=== PATIENT | male | born 1950 | race Caucasian/White ===

== ENCOUNTER 2025-04-20 13:26 | Outpatient (REF) | payer BC, SELFPAY ==
[2025-04-20 18:28] LABS: Appearance Urine Clear; Glucose Urine UA >=1000 mg/dL (Negative); MANUAL DIFF FLAG NO; PH 5.5 (5.0-9.0); Specific Gravity - Urine >= 1.030 (1.005-1.025); UMIC TRIGGER UACC YES
[2025-04-20 18:32] LABS: Hematocrit 46.2 % (42.0-52.0); Hemoglobin 15.5 g/dl (14.0-18.0); Imm Gran Abs Auto 0.01 X10*3/uL (0.00-0.03); Imm Gran Pct Auto 0.2 % (0.0-0.4); Lymphocytes Absolute Auto 1.6 X10*3/uL (1.2-4.9); Mean Corpuscular HGB Conc 33.5 g/dl (31.0-36.0); Mean Corpuscular Hemoglobin 31.7 pg (27.0-33.0); Mean Corpuscular Volume 94.5 fL (80.0-98.0); NRBC Abs Auto 0.000 X10*3/uL (0.0-0.012); NRBC Pct Auto 0.0 /100WBC (0.0-0.2); Platelet Count 206 X10*3/uL (160-400); Red Blood Count 4.89 X10*6/uL (4.60-5.80); White Blood Count 6.3 X10*3/uL (4.8-10.8)
[2025-04-20 18:44] LABS: Alanine Aminotransferase 20 U/L (0-40); Albumin Level 4.6 g/dL (3.5-5.0); Alkaline Phosphatase 50 U/L (39-117); Anion Gap 13 (12-20); Aspartate Amino Transferase 25 U/L (5-37); Blood Urea Nitrogen 32 mg/dL (9-16); Calcium 9.6 mg/dL (8.4-10.2); Carbon Dioxide 25 mmol/L (22-29); Chloride 109 mmol/L (96-108); Cholesterol 106 mg/dL (<200); Estimated Glomerular Filt Rate 57; HDL Cholesterol 35 mg/dL (>40); Magnesium 2.2 mg/dL (1.6-2.6); Potassium 4.8 mmol/L (3.3-5.1); Sodium 142 mmol/L (135-145); Total Protein 7.2 g/dL (6.5-8.0); Triglycerides 141 mg/dL (<150)
[2025-04-20 19:22] LABS: Folate 9.3 ng/mL (> or = 4.0); Vitamin B12 255 pg/mL (200-900)
[2025-04-21 04:44] LABS: Syphilis Screen Nonreactive (Nonreactive)
[2025-04-21 05:41] LABS: HBS Num1 0.21 mIU/mL (0-7.99); HBsAGNum1 0.41 S/CO (0.00-0.99); HIV Num 1 0.07 S/CO (0.00-0.99); Hepatitis B Surface Antigen Negative (Negative); ~HepC Num1 0.09 S/CO (0.00-0.79); ~Hepatitis B Surface Antibody NONREACTIVE (Nonreactive); ~Hepatitis C Antibody Nonreactive (Nonreactive)
[2025-04-26 08:38] LABS: VITAMIN D (1,25 OH) D3 20 pg/mL; Vit D (1,25-Dihydroxy) Total 20 pg/mL (18-72); Vitamin D (1,25 OH) D2 <8 pg/mL
== END 2025-04-20 13:27 | disposition home or self-care (01) ==
LOC: HO.HKASLDS 13:26
PROVIDERS: PCP Student in an Organized Health Care Education/Training Program; Visit Provider Student in an Organized Health Care Education/Training Program
DX: Z76.89 Persons encountering health services in other specified circumstances (principal); Z13.9 Encounter for screening, unspecified; Z01.89 Encounter for other specified special examinations; Z13.31 Encounter for screening for depression; Z13.220 Encounter for screening for lipoid disorders; Z13.1 Encounter for screening for diabetes mellitus; Z11.4 Encounter for screening for human immunodeficiency virus [HIV]; Z13.6 Encounter for screening for cardiovascular disorders; Z71.9 Counseling, unspecified; L40.9 Psoriasis, unspecified; I50.22 Chronic systolic (congestive) heart failure; H25.9 Unspecified age-related cataract; M17.0 Bilateral primary osteoarthritis of knee; E66.812 Obesity, class 2; Z87.891 Personal history of nicotine dependence; Z68.36 Body mass index [BMI] 36.0-36.9, adult
CPT/HCPCS: 36415; 80053; 80061; 81001; 82607; 82652; 82746; 83036; 83735; 85025; 86706; 86780; 86803; 87340; 87389; 96127

== ENCOUNTER 2025-04-20 13:26 | Outpatient (AMB) | payer BC, SELFPAY ==
--- NOTE | 2025-04-20 13:31 | MHC.PC.OV ---
Vital Signs 04/20/25 13:40 Height 5 ft 3.39 in Weight 207 lb BMI 36.2 BP 98/74 Blood Pressure Location Rt brachial Position Sitting Respiration 16 Pulse 88 Pulse Source Pulse Oximeter Temp 97.8 F Temp Source Oral Pulse Oximetry (%) 95 Oxygen Delivery Method Room Air Intake Visit Reasons: CERTIFIED MA[employer] // Knee Pain Intake Note: establish care Sheriff'S Officer Required: No Accompanied by: Self / Same As Patient Allergies No Known Allergies Allergy (Verified 04/20/25 13:31) Tobacco use date assessed: 04/20/25 Fall risk assessment: No Falls in past year Last assessed Fall Risk: 04/20/25 Dental Screening Dental Screen Date: 04/20/25 Did you have a dental visit in the last 12 months?: Yes Did you have a dental problem in the last 6 months where you did not have access to dental care?: No Was dental information given to patient?: Patient has dentist HPI HPI Comments History of Present Illness Details History of Present Illness The patient is a 74-year-old male presenting with management of existing chronic conditions and obtaining referrals for specialized care. 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 Type 2 Diabetes Mellitus: - The patient has a history of type 2 diabetes mellitus, which he manages with Mounjaro injections, currently at a dose of 12.5 mg. - His last A1c was reported to be just under 6, indicating good control of his diabetes. Psoriasis: - The patient reports psoriasis with scaly plaques present on the forearms, shins, knees, and tailbone. - He is seeking dermatological treatment, including potential injections to manage the condition. Osteoarthritis of bilateral knees: - The patient has osteoarthritis in both knees, requiring knee replacement surgery, but is currently managing with gel injections. Cataracts: - The patient has bilateral cataracts and is seeking ophthalmological evaluation and treatment. Health Maintenance - Low dose CT scan for lung cancer screening due to history of smoking - Abdominal ultrasound for aneurysm screening due to history of smoking - Comprehensive blood work including CBC, lipid profile, A1c, and vitamin levels Review of Systems - Cardiovascular: Reports history of myocardial infarction and congestive heart failure. Denies current chest pain or palpitations. - Endocrine: Reports history of diabetes mellitus, currently well-controlled with medication. - Dermatological: Reports psoriasis with scaly plaques on forearms, shins, knees, and tailbone. - Musculoskeletal: Reports osteoarthritis in both knees, managed with injections. - Ophthalmological: Reports cataracts in both eyes. 10-point ROS reviewed and negative except as noted in HPI Past Medical History - Congestive Heart Failure - Type 2 Diabetes Mellitus - Psoriasis - Osteoarthritis of bilateral knees - Cataracts - History of Myocardial Infarction - History of Smoking Physical Exam - Oral Examination: Tonsils present, no abnormalities noted - Dermatological Examination: Scaly plaques on medial aspect of forearms, bilateral shins, knees, and tailbone - Cardiovascular Examination: Evidence of sternal scar from previous surgery Discussion Notes During the visit, I discussed with the patient the need for referrals to various specialists, including dermatology for psoriasis, ophthalmology for cataracts, and orthopedics for knee osteoarthritis. We also discussed the importance of preventative screenings, such as a low dose CT scan for lung cancer and an abdominal ultrasound due to his smoking history. I emphasized the need for comprehensive blood work to monitor his diabetes and overall health. The patient was advised to follow up with the specialists and return for a review of the results. Plan 1. Unspecified systolic (congestive) heart failure I50.20 HCC 85 - Referral to cardiology for ongoing management and evaluation of heart failure. 2. Type 2 diabetes mellitus with other specified complication E11.69 HCC 18 - Continue Mounjaro injections at 12.5 mg and monitor A1c levels. Referral to endocrinology for diabetes management. 3. Psoriasis, unspecified L40.9 - Referral to dermatology for evaluation and potential treatment with injections. 4. Bilateral primary osteoarthritis of knee M17.0 - Referral to orthopedics for evaluation and management, including potential knee replacement surgery. 5. Unspecified cataract H26.9 - Referral to ophthalmology for evaluation and management of cataracts. 6. Encounter for general adult medical examination with abnormal findings Z00.01 - Order low dose CT scan for lung cancer screening and abdominal ultrasound for aneurysm screening due to history of smoking. - Order comprehensive blood work including CBC, lipid profile, A1c, and vitamin levels. Patient Instructions - Follow up with cardiology, endocrinology, dermatology, ophthalmology, and orthopedics as referred. - Complete all recommended screenings, including low dose CT scan and abdominal ultrasound. - Get comprehensive blood work done as ordered. - Return for a follow-up visit to discuss results and ongoing management. [facility] Family History (Updated 04/20/25 @ 13:32 by Bethany Osullivan MA) Father No problems noted. Mother No problems noted. Social History (Updated 04/20/25 @ 13:32 by Bethany Osullivan MA) Housing: House Alcohol intake: current Alcohol intake frequency: does not drink Patient Tobacco Use Status: Never used Tobacco service: Yes Current occupational status: disabled Cognitive needs: Yes (cane and walker) Hearing needs: Yes (b/l earing aids) Vision needs: Yes (reading) Questionnaire PHQ-9 Over the last 2 weeks, how often have you been bothered by any of the following problems? 1. Little interest or pleasure in doing things: not at all 2. Feeling down, depressed, or hopeless: not at all 3. Trouble falling or staying asleep, or sleeping too much: not at all 4. Feeling tired or having little energy: not at all 5. Poor appetite or overeating: not at all 6. Feeling bad about yourself - or that you are a failure or have let yourself or your family down: not at all 7. Trouble concentrating on things, such as reading the newspaper or watching television: not at all 8. Moving or speaking so slowly that other people could have noticed. Or the opposite - being so fidgety or restless that you have been moving around a lot more than usual: not at all 9. Thoughts that you would be better off or of hurting yourself in some way: not at all Total score: 0 Depression Screening Interpretation: Negative Depression Screening Done: Yes Source: Developed by Drs. Miguel Angel Blanca, Michelle Bettencourt, Sherman Gomez and colleagues, with an educational all from [employer]. Thrive Questionnaire Date Thrive assessed: 04/20/25 I am a: Patient What is your living situation today?: I have a steady place to live Within the past 12 months, did the food you bought not last and you didn't have the money to get more?: I choose not to answer this question Within the past 12 months, did you worry whether your food would run out before you got money to buy more?: I choose not to answer this question Do you have trouble paying for medicines?: I choose not to answer this question Do you have trouble getting transportation to medical appointments?: No Do you have trouble paying your heating and electricity bill?: I choose not to answer this question Do you have trouble taking care of your child, family member or friend?: I choose not to answer this question Are you currently unemployed and looking for a job?: No Are you interested in more education?: No Please select the resources that you would like help with: None Currently or been in a relationship where the following occur: No concerns reported THRIVE Score: 0 AUDIT C Alcohol Use Questionnaire (AUDIT-C) 1. How often do you have a drink containing alcohol?: Never 3. How often do you have six or more drinks on one occasion?: Never Total Score: 0 EILEEN-7 AMB Questionnaire EILEEN-7 Date EILEEN - 7 assessed: 04/20/25 Feeling nervous, anxious, or on edge: 0 = Not at all Not being able to stop or control worryin = Not at all Worrying too much about different things: 0 = Not at all Trouble relaxin = Not at all Being so restless that it is hard to sit still: 0 = Not at all Becoming easily annoyed or irritable: 0 = Not at all Feeling afraid as if something awful might happen: 0 = Not at all Total EILEEN-7 score (0-4 normal; 5-9 mild; 10-14 moderate; 15-21 severe): 0 Source: Developed by Drs. Miguel Angel Blanca, Michelle Bettencourt, Sherman Gomez and colleagues, with an educational all from [employer]. Physical exam (Primary Care) Tobacco/Smoking Status: Tobacco use Status Tobacco use date assessed 04/20/25 04/20/25 13:35 Patient Tobacco Use Status Never used Tobacco 04/20/25 13:35 PHQ-9: PHQ-9 Score PHQ-9: Total score 0 04/20/25 13:35 Depression Screening Interpretation: Negative Thrive Assessment: Date of Thrive Assessment Date Thrive assessed 04/20/25 04/20/25 13:35 Currently or been in a relationship where the following occur: No concerns reported Coding Level of Care Code New Pt Level 3 (49607) Diagnoses Establishing care with new doctor, encounter for Z76.89 Encounter for screening, unspecified Z13.9 Routine lab draw Z01.89 Screening for depression Z13.31 Screening for lipoid disorders Z13.220 Screening for diabetes mellitus Z13.1 Screening for HIV (human immunodeficiency virus) Z11.4 Hypertension screen Z13.6 Counseling, unspecified Z71.9 Psoriasis L40.9 Chronic systolic congestive heart failure I50.22 Heart failure type: systolic Heart failure chronicity: chronic Age-related cataract of both eyes, unspecified age-related cataract type H25.9 Cataract type: age-related Age-related cataract type: unspecified Primary osteoarthritis of both knees M17.0 Osteoarthritis type: primary History of nicotine use Z87.891 Class 2 obesity E66.812 Assessment & Plan Assessment & Plan (1) Establishing care with new doctor, encounter for: Code(s): Z76.89 - Persons encountering health services in other specified circumstances (2) Encounter for screening, unspecified: Code(s): Z13.9 - Encounter for screening, unspecified (3) Routine lab draw: Code(s): Z01.89 - Encounter for other specified special examinations (4) Screening for depression: Code(s): Z13.31 - Encounter for screening for depression (5) Screening for lipoid disorders: Code(s): Z13.220 - Encounter for screening for lipoid disorders (6) Screening for diabetes mellitus: Code(s): Z13.1 - Encounter for screening for diabetes mellitus (7) Screening for HIV (human immunodeficiency virus): Code(s): Z11.4 - Encounter for screening for human immunodeficiency virus [HIV] (8) Hypertension screen: Code(s): Z13.6 - Encounter for screening for cardiovascular disorders (9) Counseling, unspecified: Code(s): Z71.9 - Counseling, unspecified (10) Psoriasis: Code(s): L40.9 - Psoriasis, unspecified (11) Congestive heart failure: Code(s): I50.9 - Heart failure, unspecified Qualifiers: Heart failure type: systolic Heart failure chronicity: chronic Qualified Code(s): I50.22 - Chronic systolic (congestive) heart failure (12) Bilateral cataracts: Code(s): H26.9 - Unspecified cataract Qualifiers: Cataract type: age-related Age-related cataract type: unspecified Qualified Code(s): H25.9 - Unspecified age-related cataract (13) Osteoarthritis of knees, bilateral: Code(s): M17.0 - Bilateral primary osteoarthritis of knee Qualifiers: Osteoarthritis type: primary Qualified Code(s): M17.0 - Bilateral primary osteoarthritis of knee (14) History of nicotine use: Code(s): Z87.891 - Personal history of nicotine dependence (15) Class 2 obesity: Code(s): E66.812 - Obesity, class 2 Plan Orders: Orders Complete Blood Count Auto Diff Today Z13.9 - Encounter for screening, unspecified, Z76.89 - Persons encountering health services in other specified circumstances Comprehensive Met. Panel Today Z13.9 - Encounter for screening, unspecified, Z76.89 - Persons encountering health services in other specified circumstances Hemoglobin A1c Today Z13.9 - Encounter for screening, unspecified, Z76.89 - Persons encountering health services in other specified circumstances HIV Ab/Ag Today Z13.9 - Encounter for screening, unspecified, Z76.89 - Persons encountering health services in other specified circumstances Lipid Panel Today Z13.9 - Encounter for screening, unspecified, Z76.89 - Persons encountering health services in other specified circumstances Magnesium Today Z13.9 - Encounter for screening, unspecified, Z76.89 - Persons encountering health services in other specified circumstances Syphilis Screen Today Z13.9 - Encounter for screening, unspecified, Z76.89 - Persons encountering health services in other specified circumstances Vitamin D 1,25 dihydroxy Today Z13.9 - Encounter for screening, unspecified, Z76.89 - Persons encountering health services in other specified circumstances US abdominal aortic aneurysm Today Z13.9 - Encounter for screening, unspecified, Z87.891 - Personal history of nicotine dependence Hepatitis B Surface Antibody Today Z13.9 - Encounter for screening, unspecified, Z76.89 - Persons encountering health services in other specified circumstances Hepatitis B Surface Antigen Today Z13.9 - Encounter for screening, unspecified, Z76.89 - Persons encountering health services in other specified circumstances Hepatitis C Antibody Today Z13.9 - Encounter for screening, unspecified, Z76.89 - Persons encountering health services in other specified circumstances UA CC w/rflx Micro + Cult Today Z13.9 - Encounter for screening, unspecified, Z76.89 - Persons encountering health services in other specified circumstances Vitamin B12 and Folate Today Z13.9 - Encounter for screening, unspecified, Z76.89 - Persons encountering health services in other specified circumstances CT lung screening Today Z13.9 - Encounter for screening, unspecified, Z87.891 - Personal history of nicotine dependence Referrals Dermatology Referral L40.9 - Psoriasis, unspecified Endocrinology Referral E11.9 - Type 2 diabetes mellitus without complications Cardiology Referral I50.9 - Heart failure, unspecified Ophthalmology Referral H26.9 - Unspecified cataract Orthopedics Referral M17.0 - Bilateral primary osteoarthritis of knee
[2025-04-20 13:40] VITALS: BP 98/74; PULSE 88; RESP 16; TEMP 36.6; O2SAT 95; BMI 36.2
== END 2025-04-20 14:24 | disposition home or self-care (01) ==
LOC: HO.HMCFMS 13:27
PROVIDERS: PCP Student in an Organized Health Care Education/Training Program; Visit Provider Student in an Organized Health Care Education/Training Program
DX: I50.22 Chronic systolic (congestive) heart failure (principal); L40.9 Psoriasis, unspecified; H25.9 Unspecified age-related cataract; M17.0 Bilateral primary osteoarthritis of knee; Z87.891 Personal history of nicotine dependence; E66.812 Obesity, class 2

== ENCOUNTER 2025-05-12 12:48 | Outpatient (AMB) | payer BC, SELFPAY ==
[2025-05-12 12:51] VITALS: BP 121/75; PULSE 81; RESP 16; TEMP 36.3; O2SAT 96; BMI 36.7
--- NOTE | 2025-05-12 12:51 | A.OFFPC_ITS ---
Vital Signs 05/12/25 12:51 Height 5 ft 3.39 in Weight 209 lb 8 oz BMI 36.7 BP 121/75 Blood Pressure Location Rt brachial Position Sitting Respiration 16 Pulse 81 Pulse Source Pulse Oximeter Temp 97.4 F Temp Source Oral Pulse Oximetry (%) 96 Oxygen Delivery Method Room Air Intake Visit Reasons: Cataract surgery 05/26 Both eyes Intake Note: establish care Customer Service Representative Required: No Accompanied by: Self / Same As Patient Allergies No Known Allergies Allergy (Verified 05/12/25 12:51) Tobacco use date assessed: 04/20/25 Fall risk assessment: No Falls in past year Last assessed Fall Risk: 04/20/25 Dental Screening Dental Screen Date: 04/20/25 Did you have a dental visit in the last 12 months?: Yes Did you have a dental problem in the last 6 months where you did not have access to dental care?: No Was dental information given to patient?: Patient has dentist HPI HPI Comments History of Present Illness Details History of Present Illness The patient is a 74-year-old male presenting for follow-up on previous referrals and lab results. Congestive heart failure: - The patient has a history of congestiv e heart failure and is currently managed with medications including spironolactone, Entresto, and metoprolol. - He is scheduled to see a lag screwer for clearance before undergoing cataract surgery. Type 2 diabetes mellitus: - The patient has type 2 diabetes [facility], previously managed with insulin and metformin. - His hemoglobin A1c is currently 6.3%, indicating good control, and he is advised to restart metformin to maintain levels below the diabetic range. Psoriasis: - The patient reports ongoing psoriasis and is considering treatment options including a dermatology referral for potential injections. Osteoarthritis of the knees: - The patient has osteoarthritis of the knees, which is part of his chronic medical history. Cataracts: - The patient is preparing for cataract surgery and requires cardiology clearance due to his cardiac history. Chronic kidney disease stage 2: - The patient has chronic kidney disease stage 2, with a renal function of 57, and is currently on Farxiga for kidney protection. Vitamin B12 deficiency: - The patient has a low vitamin B12 leve l at 255, and supplementation is recommended to prevent deficiency symptoms. Hyperlipidemia: - The patient has hyperlipidemia, with g ood overall cholesterol levels but low HDL at 35. Review of Systems 10-point ROS reviewed and negative excep t as noted in HPI Past Medical History - Congestive heart failure - Type 2 diabetes mellitus - Psoriasis - Osteoarthritis of the knees - Cataracts Health Maintenance - Referral for CT lung screening and abd ominal ultrasound for preventative care. - Vitamin B12 supplementation recommende d to prevent deficiency symptoms. - Referral to a medical scientific liaison and diabeti c educator for dietary management and diabetes education. Physical Exam General: Well-appearing, in no acute distress. Vital signs: Within normal limits. HEENT: Normocephalic, atraumatic. PERRLA, EOMI. Conjunctiva clear, sclera anicteric. Oropharynx clear, mucous membranes moist. TMs intact bilaterally. Neck: Supple, no lymphadenopathy, no thyromegaly, no JVD or carotid bruits. Cardiovascular: RRR, normal S1/S2, no murmurs, rubs, or gallops. Peripheral pulses 2+ and symmetric. No edema. Respiratory: Lungs clear to auscultation bilaterally, no wheezes, rales, or rhonchi. Normal effort. Abdomen: Soft, non-tender, non-distended. Normoactive bowel sounds. No hepatosplenomegaly, no masses. MSK: Full range of motion, no joint swelling or deformity. Normal gait. Skin: Warm, dry, intact. No rashes, lesions, or pallor. Neuro: Alert and oriented x3. Cranial nerves II-XII intact. Strength 5/5 throughout. Sensation intact. Reflexes 2+ symmetric. Normal coordination and gait. Psych: Appropriate mood and affect. Normal judgment and insight. Plan 1. Congestive Heart Failure - Continue current medications including spironolactone, Entresto, and metoprolol. - Obtain cardiology clearance prior to c ataract surgery. 2. Type 2 Diabetes Mellitus - Restart metformin 500 mg twice daily t o maintain hemoglobin A1c below diabetic range. - Referral to a medical scientific liaison and diabeti c educator for dietary management and diabetes education. 3. Psoriasis - Referral to dermatology for evaluation and potential treatment with injections. 4. Osteoarthritis Of The Knees - Continue current management as part of chronic medical history. 5. Cataracts - Schedule cataract surgery pending card iology clearance. 6. Chronic Kidney Disease Stage 2 - Continue Farxiga for kidney protection . 7. Vitamin B12 Deficiency - Supplement with vitamin B12 to prevent deficiency symptoms. 8. Hyperlipidemia - Continue current lipid management; mon itor HDL levels. Discussion Notes During the visit, we discussed the patient's current health status and management plans. I emphasized the importance of maintaining his hemoglobin A1c below the diabetic range and recommended restarting metformin. We also discussed the need for cardiology clearance before cataract surgery due to his cardiac history. I advised on the benefits of vitamin B12 supplementation and referred him to a medical scientific liaison and staff educator for further support. We reviewed the patient's medication regimen and ensured there were no interactions. I provided referrals for dermatology and cardiology consultations. Patient was informed and verbally consented to the use of an ambient scribe for clinic note documentation during this visit. Patient Instructions - Take metformin 500 mg twice daily, onc e in the morning and once at night. - Continue current medications as prescr ibed, including spironolactone, Entresto, and metoprolol. - Schedule and attend cardiology appoint ment for clearance before cataract surgery. - Take a vitamin B12 supplement daily. - Follow up with dermatology for psorias is management. - Attend appointments with the nutrition ist and staff educator for dietary guidance. Total time spent caring for the patient today was 30 minutes. This includes time spent before the visit reviewing the chart, time spent documenting, and time spent reviewing laboratory results, diagnostic imaging, medications, performing a medically necessary evaluation, counseling on diagnoses, care coordination, ordering appropriate tests, ordering appropriate medications, review of tests performed by other providers, reporting test results with the patient. [facility] Medical History (Updated 04/21/25 @ 12:22 by Pawan Low MD) Diabetes mellitus type 2, controlled, without complications Family History Father No problems noted. Mother No problems noted. Social History Housing: House Alcohol intake: current Alcohol intake frequency: does not drink Patient Tobacco Use Status: Never used Tobacco service: Yes Current occupational status: disabled Cognitive needs: Yes (cane and walker) Hearing needs: Yes (b/l earing aids) Vision needs: Yes (reading) Questionnaire PHQ-9 Over the last 2 weeks, how often have you been bothered by any of the following problems? 1. Little interest or pleasure in doing things: not at all 2. Feeling down, depressed, or hopeless: not at all 3. Trouble falling or staying asleep, or sleeping too much: not at all 4. Feeling tired or having little energy: not at all 5. Poor appetite or overeating: not at all 6. Feeling bad about yourself - or that you are a failure or have let yourself or your family down: not at all 7. Trouble concentrating on things, such as reading the newspaper or watching t elevision: not at all 8. Moving or speaking so slowly that other people could have noticed. Or the opposite - being so fidgety or restless that you have been moving around a lot more than usual: not at all 9. Thoughts that you would be better off or of hurting yourself in some way: not at all Total score: 0 Depression Screening Interpretation: Negative Depression Screening Done: Yes Source: Developed by Drs. Miguel Angel Blanca, Michelle Bettencourt, Sherman Gomez and colleagues, with an educational all from [employer]. Thrive Questionnaire Date Thrive assessed: 04/20/25 I am a: Patient What is your living situation today?: I have a steady place to live Within the past 12 months, did the food you bought not last and you didn't have the money to get more?: I choose not to answer this question Within the past 12 months, did you worry whether your food would run out before you got money to buy more?: I choose not to answer this question Do you have trouble paying for medicines?: I choose not to answer this question Do you have trouble getting transportation to medical appointments?: No Do you have trouble paying your heating and electricity bill?: I choose not to answer this question Do you have trouble taking care of your child, family member or friend?: I choose not to answer this question Are you currently unemployed and looking for a job?: No Are you interested in more education?: No Please select the resources that you would like help with: None Currently or been in a relationship where the following occur: No concerns reported THRIVE Score: 0 AUDIT C Alcohol Use Questionnaire (AUDIT-C) 1. How often do you have a drink containing alcohol?: Never 3. How often do you have six or more drinks on one occasion?: Never Total Score: 0 EILEEN-7 AMB Questionnaire EILEEN-7 Date EILEEN - 7 assessed: 04/20/25 Feeling nervous, anxious, or on edge: 0 = Not at all Not being able to stop or control worryin = Not at all Worrying too much about different things: 0 = Not at all Trouble relaxin = Not at all Being so restless that it is hard to sit still: 0 = Not at all Becoming easily annoyed or irritable: 0 = Not at all Feeling afraid as if something awful might happen: 0 = Not at all Total EILEEN-7 score (0-4 normal; 5-9 mild; 10-14 moderate; 15-21 severe): 0 Source: Developed by Drs. Miguel Angel Blanca, Michelle Bettencourt, Sherman Gomez and colleagues, with an educational all from [employer]. Physical exam (Primary Care) Vital Signs: Last Vital Signs Temp 97.4 F 05/12/25 12:51 Pulse 81 05/12/25 12:51 Resp 16 05/12/25 12:51 BP 121/75 05/12/25 12:51 Pulse Ox 96 05/12/25 12:51 Oxygen Delivery Method Room Air 05/12/25 12:51 BMI result Body Mass Index 36.7 Tobacco/Smoking Status: Tobacco use Status Tobacco use date assessed 04/20/25 05/12/25 12:54 Patient Tobacco Use Status Never used Tobacco 05/12/25 12:54 PHQ-9: PHQ-9 Score PHQ-9: Total score 0 05/12/25 12:54 Depression Screening Interpretation: Negative Thrive Assessment: Date of Thrive Assessment Date Thrive assessed 04/20/25 05/12/25 12:54 Currently or been in a relationship where the following occur: No concerns reported Coding Level of Care Code Est Pt Level 4 (27587) Diagnoses Diabetes mellitus type 2, controlled, without complications E11.9 Congestive heart failure I50.9 Psoriasis L40.9 Osteoarthritis M19.90 Cataract H26.9 Chronic kidney disease (CKD) N18.9 Vitamin B12 deficiency E53.8 Hyperlipidemia E78.5 Assessment & Plan Assessment & Plan (1) Diabetes mellitus type 2, controlled, without complications: Code(s): E11.9 - Type 2 diabetes mellitus without complications Category: Medical (2) Congestive heart failure: Code(s): I50.9 - Heart failure, unspecified (3) Psoriasis: Code(s): L40.9 - Psoriasis, unspecified (4) Osteoarthritis: Code(s): M19.90 - Unspecified osteoarthritis, unspecified site (5) Cataract: Code(s): H26.9 - Unspecified cataract (6) Chronic kidney disease (CKD): Code(s): N18.9 - Chronic kidney disease, unspecified (7) Vitamin B12 deficiency: Code(s): E53.8 - Deficiency of other specified B group vitamins (8) Hyperlipidemia: Code(s): E78.5 - Hyperlipidemia, unspecified Plan Orders: Referrals Nutrition/Dietitian Referral E11.9 - Type 2 diabetes mellitus without complications Nurse Navigator Referral E11.9 - Type 2 diabetes mellitus without complications Medications: New mecobalamin (vitamin B12) place tablet under tongue and allow to dissolve for at least30 secs before swallowing 1,000 mcg sublingual DAILY 90 tabs 0RF metformin 500 mg PO BID 180 tabs 0RF
== END 2025-05-12 13:33 | disposition home or self-care (01) ==
LOC: HO.HMCFMS 12:49
PROVIDERS: PCP Student in an Organized Health Care Education/Training Program; Visit Provider Student in an Organized Health Care Education/Training Program
DX: E11.9 Type 2 diabetes mellitus without complications (principal); I50.9 Heart failure, unspecified; L40.9 Psoriasis, unspecified; M19.90 Unspecified osteoarthritis, unspecified site; H26.9 Unspecified cataract; N18.9 Chronic kidney disease, unspecified; E53.8 Deficiency of other specified B group vitamins; E78.5 Hyperlipidemia, unspecified

== ENCOUNTER 2025-05-25 11:05 | Outpatient (AMB) | payer BC, SELFPAY ==
[2025-05-25 11:11] VITALS: BP 111/64; PULSE 89; RESP 16; TEMP 36.5; O2SAT 95; BMI 36.7
--- NOTE | 2025-05-25 11:11 | MHC.PC.OV ---
Vital Signs 05/25/25 11:11 Height 5 ft 3.39 in Weight 209 lb 8 oz BMI 36.7 BP 111/64 Blood Pressure Location Lt brachial Position Sitting Respiration 16 Pulse 89 Pulse Source Pulse Oximeter Temp 97.7 F Temp Source Oral Pulse Oximetry (%) 95 Oxygen Delivery Method Room Air Intake Visit Reasons: follow up twisting frame operator Intake Note: establish care Dietary Services Director Required: No Accompanied by: Self / Same As Patient Allergies No Known Allergies Allergy (Verified 05/25/25 11:12) Tobacco use date assessed: 05/25/25 Fall risk assessment: No Falls in past year Last assessed Fall Risk: 04/20/25 Dental Screening Dental Screen Date: 05/25/25 Did you have a dental visit in the last 12 months?: Yes Did you have a dental problem in the last 6 months where you did not have access to dental care?: No Was dental information given to patient?: Patient has dentist HPI HPI Comments History of Present Illness Details Consent Patient was informed and verbally consented to the use of an ambient scribe for clinic note documentation during this visit. History of Present Illness The patient is a 74-year-old male presenting with heart failure with reduced ejection fraction. Heart failure with reduced ejection fraction: The patient has been diagnosed with heart failure, initially presenting with an ejection fraction of 15%, which has improved to 25%. Pharmacological treatment with Entresto, spironolactone, metoprolol, hydralazine, and Farxiga was instituted to optimize heart function. The patient reports concerns about the condition and fears regarding the potential need for additional interventions. He was recently at his twisting frame operator for cardiac clearance for eye surgery, twisting frame operator referred pt to hydrogen plant operator for ICD insertion. I received twisting frame operator notes but there was no mention of optimization for cataract surgery. Psoriasis: The patient is aware of managing psoriasis concurrently with heart treatment. A discussion reflects concern regarding taking specific injections, with preference for obtaining clearance from the twisting frame operator to avoid drug interactions due to potentially strong medications. Medications: - Entresto: For management of heart failure - Spironolactone: For management of heart failure - Metoprolol: For management of heart failure - Hydralazine: For management of heart failure - Farxiga: For cardiac protection Social History: - No current use of allergy medications due to cost concerns, previously managed symptoms with Flonase - Expressed anxiety regarding health management and coordination Review of Systems - Cardiovascular: Reports anxiety related to heart failure status - Dermatological: Reports psoriasis requiring ongoing management with potential injections 10-point ROS reviewed and negative except as noted in HPI Past Medical History - Heart Failure with Reduced Ejection Fraction - Psoriasis Health Maintenance - Advised on using GoodRx to manage medication costs, specifically for allergy management with nasal steroids like Flonase - Discussed coordinating between twisting frame operator and other specialists regarding psoriasis treatment and potential eye surgery Physical Exam General: Well-appearing, in no acute distress. Vital signs: Within normal limits. HEENT: Normocephalic, atraumatic. PERRLA, EOMI. Conjunctiva clear, sclera anicteric. Oropharynx clear, mucous membranes moist. TMs intact bilaterally. Neck: Supple, no lymphadenopathy, no thyromegaly, no JVD or carotid bruits. Cardiovascular: RRR, normal S1/S2, no murmurs, rubs, or gallops. Peripheral pulses 2+ and symmetric. No edema. Note: Patient's heart is not pumping effectively, with an ejection fraction increased from 15% to 25%. Patient expresses fear and anxiety regarding heart condition and potential surgery. Respiratory: Lungs clear to auscultation bilaterally, no wheezes, rales, or rhonchi. Normal effort. Abdomen: Soft, non-tender, non-distended. Normoactive bowel sounds. No hepatosplenomegaly, no masses. MSK: Full range of motion, no joint swelling or deformity. Normal gait. Skin: Warm, dry, intact. No rashes, lesions, or pallor. psoriatic plaques on bilat elbows Neuro: Alert and oriented x3. Cranial nerves II-XII intact. Strength 5/5 throughout. Sensation intact. Reflexes 2+ symmetric. Normal coordination and gait. Psych: Appropriate mood and affect. Normal judgment and insight. Patient expresses fear and anxiety regarding heart condition and potential surgery. Plan 1. Heart Failure With Reduced Ejection Fraction - Continue current medications: Entresto, spironolactone, metoprolol, hydralazine, and Farxiga - Follow-up with twisting frame operator to assess need for an implantable cardioverter defibrillator (ICD) - Monitor heart function and ejection fraction improvement - Address anxiety related to cardiac management and potential surgical interventions 2. Psoriasis - Review with twisting frame operator before proceeding with psoriasis injections - Await compatibility confirmation with existing cardiac medications 3. Diabetes Mellitus type 2 continue with current medication 4. allergic rhinitis fluticasone nasal spray Discussion Notes We engaged in a thorough discussion regarding the patient's heart failure management. The importance of adhering to the current regimen was emphasized, and the potential role of an ICD in preventing arrhythmias was reviewed. Risks related to heart surgery, care coordination with the twisting frame operator, and the interdependency with treating psoriasis were highlighted. Additionally, instructions on managing allergies with [id number] options like Flonase were suggested, integrating cost management via GoodRx discounts. The patient is instructed to maintain follow-up specifically to address these intersecting concerns. concerning his medical clearance for cataract surgery there is no mention of cardiac optimization for mentioned procedure at this time I do not have enough data to medically clear patient Patient Instructions - Continue taking all heart medications as prescribed - Schedule a follow-up appointment with your twisting frame operator to discuss the potential ICD - Monitor and report new symptoms immediately - Use GoodRx to manage medication costs - Await twisting frame operator's approval before psoriasis injections Medical Decision Making The management of heart failure with reduced ejection fraction remains crucial with the current regimen showing evidence of improved ejection fraction from 15% to 25%. Emphases were given to the possibility of an ICD to reduce future risks of severe arrhythmias and strokes. Multifactorial impacts, including enhancing cardiac function and balancing co-morbidities like psoriasis, necessitate ongoing cardiology consultation. Incorporating multidisciplinary care ensures optimal outcomes through careful medication interaction assessment, emphasizing the need for careful assessment and ongoing coordination with specialists involved in the patient's care. Total time spent caring for the patient today was 30 minutes. This includes time spent before the visit reviewing the chart, time spent documenting, and time spent reviewing laboratory results, diagnostic imaging, medications, performing a medically necessary evaluation, counseling on diagnoses, care coordination, ordering appropriate tests, ordering appropriate medications. [facility] Medical History (Updated 04/21/25 @ 12:22 by Pawan Low MD) Diabetes mellitus type 2, controlled, without complications Family History Father No problems noted. Mother No problems noted. Social History Housing: House Alcohol intake: current Alcohol intake frequency: does not drink Patient Tobacco Use Status: Never used Tobacco service: Yes Current occupational status: disabled Cognitive needs: Yes (cane and walker) Hearing needs: Yes (b/l earing aids) Vision needs: Yes (reading) Questionnaire Thrive Questionnaire Date Thrive assessed: 04/20/25 I am a: Patient What is your living situation today?: I have a steady place to live Within the past 12 months, did the food you bought not last and you didn't have the money to get more?: I choose not to answer this question Within the past 12 months, did you worry whether your food would run out before you got money to buy more?: I choose not to answer this question Do you have trouble paying for medicines?: I choose not to answer this question Do you have trouble getting transportation to medical appointments?: No Do you have trouble paying your heating and electricity bill?: I choose not to answer this question Do you have trouble taking care of your child, family member or friend?: I choose not to answer this question Are you currently unemployed and looking for a job?: No Are you interested in more education?: No Please select the resources that you would like help with: None Currently or been in a relationship where the following occur: No concerns reported THRIVE Score: 0 EILEEN-7 AMB Questionnaire EILEEN-7 Date EILEEN - 7 assessed: 04/20/25 Source: Developed by Drs. Miguel Angel Blanca, Michelle Bettencourt, Sherman Gomez and colleagues, with an educational all from [employer]. Physical exam (Primary Care) Vital Signs: Last Vital Signs Temp 97.7 F 05/25/25 11:11 Pulse 89 05/25/25 11:11 Resp 16 05/25/25 11:11 BP 111/64 05/25/25 11:11 Pulse Ox 95 05/25/25 11:11 Oxygen Delivery Method Room Air 05/25/25 11:11 BMI result Body Mass Index 36.7 Tobacco/Smoking Status: Tobacco use Status Tobacco use date assessed 05/25/25 05/25/25 11:14 Patient Tobacco Use Status Never used Tobacco 05/25/25 11:14 Thrive Assessment: Date of Thrive Assessment Date Thrive assessed 04/20/25 05/25/25 11:14 Currently or been in a relationship where the following occur: No concerns reported Coding Level of Care Code Est Pt Level 4 (13476) Diagnoses Diabetes mellitus type 2, controlled, without complications E11.9 Heart failure with reduced ejection fraction I50.20 Psoriasis L40.9 Allergic rhinitis J30.9 Assessment & Plan Assessment & Plan (1) Diabetes mellitus type 2, controlled, without complications: Code(s): E11.9 - Type 2 diabetes mellitus without complications Category: Medical (2) Heart failure with reduced ejection fraction: Code(s): I50.20 - Unspecified systolic (congestive) heart failure (3) Psoriasis: Code(s): L40.9 - Psoriasis, unspecified (4) Allergic rhinitis: Code(s): J30.9 - Allergic rhinitis, unspecified Plan Medications: New fluticasone propionate 50 mcg/actuation administer into each nostril 2 sprays intranasal DAILY 16 grams 0RF
== END 2025-05-25 12:22 | disposition home or self-care (01) ==
LOC: HO.HMCFMS 11:06
PROVIDERS: PCP Student in an Organized Health Care Education/Training Program; Visit Provider Student in an Organized Health Care Education/Training Program
DX: E11.9 Type 2 diabetes mellitus without complications (principal); I50.20 Unspecified systolic (congestive) heart failure; L40.9 Psoriasis, unspecified; J30.9 Allergic rhinitis, unspecified